=== PATIENT | male | born 1965 | race Hispanic/Latino ===

== ENCOUNTER 2022-08-17 14:46 | Emergency (ER) | payer BC ==
[~2022-08-17] VITALS: Ht 177.8 cm; Wt 95.3 kg
[2022-08-17] MEDS ORDERED: KETOROLAC 30MG VIAL (30MG/ML) IM ONE (15:30)
[2022-08-17] MEDS ORDERED: LIDO1ADH71 TP (17:09)
[2022-08-17] MEDS ORDERED: CYCL10TA16 PO (17:09)
[2022-08-17 17:32] VITALS: BP 130/88
[2022-08-17] MEDS ORDERED: IBUP-2070 PO (17:41)
[2022-08-17 17:46] LABS: APPEARANCE,URINE CLEAR (CLEAR); BILIRUBIN,URINE NEGATIVE (NEGATIVE); COLOR,URINE YELLOW (YELLOW); GLUCOSE, URINE (UA) NEGATIVE (NEGATIVE); KETONES,URINE 5 mg/dL (NEGATIVE); LEUKOCYTE ESTERASE ,URINE NEGATIVE Leu/uL (NEGATIVE); NITRATE,URINE NEGATIVE (NEGATIVE); OCCULT BLOOD,URINE SMALL (NEGATIVE); PH,URINE 5.5 (5.0-8.0); PROTEIN,URINE 20 mg/dL (NEGATIVE)
[2022-08-17 17:51] LABS: BACTERIA,URINE RARE /HPF (None Seen); MUCUS,URINE FEW LPF (None Seen); OTHER CASTS, URINE 1 /LPF (None Seen); SQUAMOUS EPITHELIAL CELL,UR RARE /HPF (0-2)
== END 2022-08-17 18:08 | disposition home or self-care (01) ==
LOC: EDH 14:46
DX: S39.012A Strain of muscle, fascia and tendon of lower back, initial encounter (principal); Z98.890 Other specified postprocedural states; X58.XXXA Exposure to other specified factors, initial encounter; Y93.89 Activity, other specified; Y92.89 Other specified places as the place of occurrence of the external cause; Y99.8 Other external cause status
CPT/HCPCS: 99284; 72131; 81001; 96372; J1885

== ENCOUNTER 2022-12-21 12:19 | Emergency (ER) | payer OTHER, BC ==
[~2022-12-21] VITALS: Ht 177.8 cm; Wt 90.3 kg
[~2022-12-21 12:19] MED LIST: CYCL10TA16 PO; IBUP-2070 PO; LIDO1ADH71 TP
[2022-12-21 12:20] VITALS: BP 138/78
[2022-12-21] MEDS ORDERED: KETOROLAC 15MG/ML VIAL (15MG/ML) IV ONE (13:30)
[2022-12-21] MEDS ORDERED: IBUP-2070 PO (14:03)
[2022-12-21] MEDS ORDERED: CYCL-309 PO (14:03)
== END 2022-12-21 15:06 | disposition home or self-care (01) ==
LOC: EDH 12:19
DX: S16.1XXA Strain of muscle, fascia and tendon at neck level, initial encounter (principal); S80.02XA Contusion of left knee, initial encounter; V89.2XXA Person injured in unspecified motor-vehicle accident, traffic, initial encounter; Y93.89 Activity, other specified; Y92.89 Other specified places as the place of occurrence of the external cause; Y99.8 Other external cause status
CPT/HCPCS: 99284; 96374; 72040; 73562; J1885